=== PATIENT | female | born 1930 | race Caucasian/White ===

== ENCOUNTER 2017-05-22 14:03 | Inpatient (IN) | payer MEDICARE, BC ==
[~2017-05-22] VITALS: Ht 157.5 cm; Wt 53.6 kg
--- NOTE | ~2017-05-22 | HP ---
History And Physical [address] [place]. [address] NAME: GARRICK CHOI : 32 STATUS : ADM IN PAT#: [id number] AGE: 86 ADM/REG DATE : 05/22/17 MR#: [id number] REPORT SERV DATE: 05/22/17 DICTATED BY: ESAU MCNAMARA. DATE: 05/22/17 REPORT STATUS : Draft TRANSCRIBED BY: MODL DATE: 05/22/17 DATE OF ADMISSION: 05/22/2017 CHIEF COMPLAINT: Diarrhea. HISTORY OF PRESENT ILLNESS: This patient has two months of diarrhea and foul-smelling stools. She also has fecal incontinence. She has a previous history of constipation. 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 She has had some orthostatic dizziness. She denies any blood in her stool. PAST MEDICAL HISTORY: 1. COPD. 2. Alzheimer's. 3. Depression. 4. Dementia. 5. GERD. 6. Osteoporosis. 7. Also history of hepatitis B. 8. Hypertension. PAST SURGICAL HISTORY: 1. Appendectomy. 2. Lumpectomy. FAMILY HISTORY: Unknown. SOCIAL HISTORY: Occasional alcohol use. Former smoker. Lives at assisted living with her . MEDICATIONS: At home include: 1. Advair. 2. Alprazolam. 3. Celexa. 4. Cipro. 5. DuoNeb. 6. Pantoprazole. 7. Spiriva inhaler. PHYSICAL EXAMINATION: GENERAL: Sitting in a wheelchair. VITAL SIGNS: Blood pressure is 78/50, pulse 94, and 02 saturation 97%. NEUROLOGIC: Alert, somewhat confused. HEENT: Head normocephalic. Pupils are equal. Mucous membranes are not dry. NECK: Trachea midline. Thyroid not increased. No masses in the neck. CHEST: Some decreased breath sounds. CARDIAC: Normal. History And Physical [address] [place]. [address] NAME: GARRICK CHOI : 32 STATUS : ADM IN PAT#: [id number] AGE: 86 ADM/REG DATE : 05/22/17 MR#: [id number] REPORT SERV DATE: 05/22/17 DICTATED BY: ESAU MCNAMARA DATE: 05/22/17 REPORT STATUS : Draft TRANSCRIBED BY: MODL DATE: 05/22/17 ABDOMEN: Soft and nontender. EXTREMITIES: Has some degenerative joint problems. MENTAL STATUS: Conversant, somewhat confused at times. IMPRESSION: 1. Hypotension. Her usual blood pressure is 108/60. Could be having hypotension from volume loss due to diarrhea. 2. Diarrhea, unclear etiology. Rule out Clostridium difficile. Rule out collagenous colitis. 3. History of dementia. 4. Chronic obstructive pulmonary disease. PLAN: 1. We will admit for IV fluids. 2. Hospitalist consult. 3. Stool studies. 4. May need endoscopic evaluation if stabilized. MG/MODL Esau Mcnamara M.D. / [id number] CC: Napoleon Baeza M.D.
--- NOTE | ~2017-05-22 | CN ---
Consultation Report [address] [place]. [address] NAME: GARRICK CHOI : 32 STATUS : ADM IN PAT#: [id number] AGE: 86 ADM/REG DATE : 05/22/17 MR#: [id number] REPORT SERV DATE: 05/22/17 DICTATED BY: DARLYN GARCIA DATE: 05/22/17 REPORT STATUS : Draft TRANSCRIBED BY: MODL DATE: 05/22/17 CONSULTATION DATE OF CONSULTATION: CONSULTATION REASON: Medical management. HISTORY OF PRESENT ILLNESS: This is an 86-year-old female patient who presented to Dr. Mazariegos's office this morning with diarrhea for a month. The patient was admitted to hospital because of hypotension. At the office, was found to be 70/40. However now, her blood pressure is 135/77. The patient is recommended to get a direct admit because of hypotension and diarrhea. She said she had chronic constipation, but she does not recall any trigger, but she started having loose bowel movement here and there that she has no idea about the consistency, where it comes and in what kind of situation that triggered. Does not recall any infectious etiology either. Does not recall any antibiotic use. The patient recently moved to [facility] last Friday; however, this symptom started prior to that, weeks ago. There is not much medical history change. The patient has chronic oxygen at home. REVIEW OF SYSTEMS: No fever, no chills. No nausea or vomiting. No abdominal pain. Has a loose stool frequently. No travel history. PAST MEDICAL HISTORY: 1. Dementia. 2. COPD with chronic oxygen 3 L use. 3. GERD. 4. Anxiety and depression. 5. History of rectal prolapse. 6. Colon polyps. 7. Pelvic fracture. 8. History of pneumonia. 9. History of hepatitis B. 10.History of pica with foreign body on the last admission. 11.Hysterectomy and tonsillectomy. Consultation Report [address] [place]. [address] NAME: GARRICK CHOI : 32 STATUS : ADM IN PAT#: [id number] AGE: 86 ADM/REG DATE : 05/22/17 MR#: [id number] REPORT SERV DATE: 05/22/17 DICTATED BY: DARLYN GARCIA DATE: 05/22/17 REPORT STATUS : Draft TRANSCRIBED BY: MODL DATE: 05/22/17 PAST SURGICAL HISTORY: 1. Bilateral inguinal hernia repair. 2. Left arm surgery. 3. Ventral abdominal hernia repair. 4. Vein stripping. 5. Right foot surgery. 6. Breast biopsy. 7. Appendectomy. ALLERGIES: PENICILLIN. SOCIAL HISTORY: She quit smoking in 2004. She is , has two children. She does not drink alcohol. She lives at assisted living currently. FAMILY HISTORY: Noncontributory. MEDICATIONS: 1. Proventil as needed. 2. Xanax 0.25 mg twice a day. 3. Aspirin 81 mg once at nighttime. 4. Cinnamon once at night. 5. Celexa 20 mg once a day. 6. Colace 100 mg once a day. 7. Aricept 10 mg once a day. 8. Atrovent two sprays three times a day. 9. Combivent once at night. 10.Levothyroxine 100 mcg once a day. 11.Namenda 10 mg once a day. 12.Multivitamin once a day. 13.Protonix 40 mg once a day. 14.Spiriva once a day. 15.Allergy pill. 16.Melatonin. PHYSICAL EXAMINATION: VITAL SIGNS: Blood pressure is 135/77, pulse rate was 74, temperature was 98.4, saturation is 99% 3 L nasal cannula oxygen. GENERAL APPEARANCE: She is alert, awake, not in acute distress elderly woman. HEENT: Pupils are equal, round, and reactive to light. EOMI intact. NECK: There are no carotid bruits audible. No JVD. CHEST: Clear to auscultation bilaterally. CARDIOVASCULAR: I do not hear any murmur, rub. Has a regular rhythm and rate. ABDOMEN: Bowel sounds are present and soft. I do not see any tenderness or rebound tenderness. EXTREMITIES: There is no pitting edema. Consultation Report [address] [place] [address] NAME: GARRICK CHOI : 32 STATUS : ADM IN [facility]#: [id number] AGE: 86 ADM/REG DATE : 05/22/17 MR#: [id number] REPORT SERV DATE: 05/22/17 DICTATED BY: DARLYN GARCIA DATE: 05/22/17 REPORT STATUS : Draft TRANSCRIBED BY: MODL DATE: 05/22/17 LABORATORY DATA: Not available. ASSESSMENT AND PLAN: 1. Chronic obstructive pulmonary disease with chronic hypoxic respiratory failure, stable. 2. Hypertension. 3. Diarrhea with history of significant constipation. 4. Dementia. 5. Anxiety and depression. 6. We will resume the medication and follow the patient along with you. EKOmari/DONTA Darlyn Garcia M.D. / [id number] CC: Napoleon Baeza M.D.
--- NOTE | ~2017-05-22 | EGD ---
EGD REPORT [facility] [address] [address] NAME: ELMA CHOI : 32 STATUS : ADM IN PAT#: [id number] AGE: 86 ADM/REG DATE : 05/22/17 MR#: [id number] REPORT SERV DATE: 05/24/17 DICTATED BY: GAETANO MCNAMARA DATE: 05/24/17 REPORT STATUS : Draft TRANSCRIBED BY: [facility] DATE: 05/24/17 [facility] Patient Name: Elma Choi Date of : 1930 Attending MD: GAETANO MCNAMARA MD Procedure Date No Time: 05/24/2017 Procedure: Colonoscopy Indications: Chronic diarrhea Medicines: Propofol per Anesthesia Complications: No immediate complications. Procedure: Pre-Anesthesia Assessment: - ASA Grade Assessment: III - A patient with severe systemic disease. After I obtained informed consent, the scope was passed under direct vision. Throughout the procedure, the patient's blood pressure, pulse, and oxygen saturations were monitored continuously. The PCF [id number] was introduced through the anus and advanced to the cecum, identified by appendiceal orifice and ileocecal valve. After I obtained informed consent, the scope was passed under direct vision. Throughout the procedure, the patient's blood pressure, pulse, and oxygen saturations were monitored continuously. The colonoscopy was performed without difficulty. The patient tolerated the procedure well. The quality of the bowel preparation was adequate. Findings: Normal mucosa was found in the entire colon. Biopsies were taken with a cold forceps for histology. A flat polyp was found in the proximal ascending colon. The polyp was 10 mm in size. This was biopsied with a cold forceps for histology. The retroflexed view of the distal rectum and anal verge was normal and showed no anal or rectal abnormalities. Impression: - Normal mucosa in the entire examined colon. Biopsied. - One 10 mm polyp in the proximal ascending colon. Biopsied. Recommendation: - Return patient to hospital keys for ongoing care. Procedure Code(s): --- Professional --- 56388, Colonoscopy, flexible, proximal to splenic flexure; with biopsy, single or multiple EGD REPORT [facility] [address] [facility]. [address] NAME: ELMA CHOI : 32 STATUS : ADM IN [facility]#: [id number] AGE: 86 ADM/REG DATE : 05/22/17 MR#: [id number] REPORT SERV DATE: 05/24/17 DICTATED BY: GAETANO MCNAMARA. DATE: 05/24/17 REPORT STATUS : Draft TRANSCRIBED BY: [employer] DATE: 05/24/17 Diagnosis Code(s): --- Professional --- D12.2, Benign neoplasm of ascending colon K52.9, Noninfective gastroenteritis and colitis, unspecified CPT copyright 2013 [employer]. All rights reserved. The codes documented in this report are preliminary and upon cardiographer review may be revised to meet current compliance requirements. Gaetano Mcnamara MD GAETANO MCNAMARA MD 05/24/2017 10:19 AM This report has been signed electronically. Number of Addenda: 0 Note Initiated On: 05/24/2017 9:24 AM Scope Withdrawal Time 0 hours 0 minutes 0 seconds [address] [facility] [place] [address]
--- NOTE | ~2017-05-22 | DS ---
Discharge Summary [facility] [address] [facility] [place]. [address] NAME: GARRICK CHOI : 32 STATUS : ADM IN [facility]#: [id number] AGE: 86 ADM/REG DATE : 05/22/17 MR#: [id number] REPORT SERV DATE: 05/24/17 DICTATED BY: GAETANO MCNAMARA DATE: 05/24/17 REPORT STATUS : Draft TRANSCRIBED BY: MODL DATE: 05/24/17 ADMISSION DATE: 05/22/2017 DISCHARGE DATE: DISCHARGE DIAGNOSES: 1. Diarrhea, dehydration. 2. Hypotension, requiring admission. 3. Dementia. 4. Chronic obstructive pulmonary disease. 5. History of hepatitis B. CASE HISTORY: This patient has had two months of diarrhea. Also, foul-smelling flatus. She has had incontinence. Previously had had marked constipation. On admission in the office, her blood pressure 78/50, pulse was 94. On admission to the hospital, initial pressure was 120. On exam, she was alert and oriented. Warm and dry. Oxygen on her chest was clear bilaterally. Abdomen was soft, nontender. HOSPITAL COURSE AND ASSESSMENT: The patient was given IV fluids. As noted, her blood pressure was 120 on admission, although she was supine sitting like in the office. She was given IV fluids. She improved. She had no bowel movement in 24 hours. Colonoscopy was done which was basically normal. Biopsies were taken for microcolitis. PLAN: The patient will be followed up as an outpatient. Unclear the etiology of her diarrhea. We will await studies. /DONTA Gaetano Mcnamara M.D. / [id number] CC: Napoleon Baeza M.D.
[~2017-05-22 14:03] MED LIST: ADVAIR250 INH; ALBUTEROL5 INH; ALLEGRA180 PO; ARICEPT10 PO; ASAB PO; ATRONASAL6 NAS; BEN25 PO; BENTYL10 PO; CELEXA20 PO; CHONDROITIN PO; CINNAMONPO; COMBIVENT INH; COMBIVENT RESPIM4 GM INH; CYANOCOBALAMIN PO; DSS PO; FLEXERIL5 MG PO; FLORASTOR250 MG PO; GARLIC PO; GLUCOSAMINE1 TA2 PO; IMOD PO; LAM250 PO; LEVAQ750PM IV; LEVOTHYROXIN100 MCG PO; LOM PO; LORTAB10 PO; MAGNESIUM W/ ZINC PO; MAGOX4 PO; MELA3 PO; MUCINEX600 MG PO; MULTIVIT/MIN PO; OCUVITE PO; PHENERGAN (G25 MG/ML IM; PROTONIX PO; PROTONIX20 MG PO; PYRIDOXINE PO; SPIRIVA INH; STERAPRED DS10 MG; SYN1 PO; VITAMIN C100 MG PO; VITAMIN D1000 UNI1 PO; VITC500 PO; VITE PO; X25 PO; ZYRTEC ALLGY10 MG PO; [UNRECOGNIZED DRUG - OTHER] PO
[2017-05-22] MEDS ORDERED: X25 PO (15:41)
[2017-05-22] MEDS ORDERED: LEVOTHYROXIN100 MCG PO (15:42)
[2017-05-22] MEDS ORDERED: PROVHFA INH (15:42)
[2017-05-22] MEDS ORDERED: CELEXA20 PO (15:43)
[2017-05-22] MEDS ORDERED: PROTONIX PO (15:43)
[2017-05-22] MEDS ORDERED: ARICEPT10 PO (15:43)
[2017-05-22] MEDS ORDERED: NAMENDA10 MG PO (15:43)
[2017-05-22] MEDS ORDERED: DSS PO (15:43)
[2017-05-22] MEDS ORDERED: ATRONASAL6 NAS (15:43)
[2017-05-22] MEDS ORDERED: HALF81 PO (15:44)
[2017-05-22] MEDS ORDERED: SPIRIVA INH (15:44)
[2017-05-22] MEDS ORDERED: CINNAMONPO PO (15:44)
[2017-05-22] MEDS ORDERED: THERGRANM PO (15:44)
[2017-05-22] MEDS ORDERED: ALLERGY MED OTC PO (15:45)
[2017-05-22] MEDS ORDERED: COMBIVENT RESPIM4 GM INH (15:47)
[2017-05-22] MEDS ORDERED: ALTERIL SLEEP AID PO (15:47)
[2017-05-22 17:27] LABS: BASOPHILS 0.5 %; BASOPHILS ABSOLUTE 0.04 10/3/uL (0.0-0.16); EOSINOPHILS 1.6 %; EOSINOPHILS ABSOLUTE 0.12 10/3/uL (0.0-0.53); HEMATOCRIT 35.3 % (36.0-48.0); HEMOGLOBIN 11.8 g/dL (12.0-16.0); IMMATURE GRANULOCYTES 0.1 %; IMMATURE GRANULOCYTES ABSOLUTE 0.01 10/3/uL (0.0-0.11); LYMPHOCYTES 27.8 %; LYMPHOCYTES ABSOLUTE 2.07 10/3/uL (0.67-4.30); MANUAL DIFF NO %; MEAN CORPUS HGB CONC 33.4 g/dL (32.0-36.0); MEAN CORPUSCULAR HEMOGLOB 30.8 pg (26.0-34.0); MEAN CORPUSCULAR VOLUME 92.2 fL (80-100); MEAN PLATELET VOLUME 10.6 fL (9.2-13.0); MONOCYTES 9.5 %; MONOCYTES ABSOLUTE 0.71 10/3/uL (0.21-1.20); NEUTROPHILS 60.5 %; NEUTROPHILS ABSOLUTE 4.49 10/3/uL (2.02-8.40); PLATELET COUNT 318 10/3/uL (150-400); RBC DISTRIBUTION WIDTH 13.1 % (12.0-16.0); RED CELL COUNT 3.83 10/6/uL (4.0-5.6); WHITE BLOOD CELLS 7.4 10/3/uL (4.5-10.5)
[2017-05-22 17:33] LABS: PROTIME (NOT ORD) 13.1 SEC (12.0-14.5)
[2017-05-22 17:54] LABS: A/G RATIO 1.1 (0.7-1.9); ALBUMIN 3.9 G/DL (3.5-5.0); ALKALINE PHOSPHATASE 108 U/L (45-117); BUN (BLOOD UREA NITROGEN) 17 MG/DL (6-23); C-REACTIVE PROTEIN 9.8 MG/L (<8.0); CALCIUM, SERUM 9.5 MG/DL (8.5-10.4); CHLORIDE, SERUM 99 MMOL/L (96-112); CO2 (CARBON DIOXIDE) 26 MMOL/L (24-34); CREATININE 0.93 MG/DL (0.55-1.02); GFR AFRICAN AMERICAN 65 ML/MIN (>=60); GFR NON AFRICAN AMERICAN 56 ML/MIN (>=60); GLOBULIN 3.6 G/DL (2.5-4.1); GLUCOSE, SERUM 79 MG/DL (60-99); POTASSIUM, SERUM 3.9 MMOL/L (3.5-5.3); SGOT(AST) 28 U/L (5-40); SGPT(ALT) 25 U/L (5-65); SODIUM, SERUM 133 MMOL/L (135-148); TOTAL BILIRUBIN 0.4 MG/DL (0-1.2); TOTAL PROTEIN 7.5 G/DL (6.0-8.5)
[2017-05-23 03:53] LABS: ASCORBIC ACID (UR NOT ORDER) NEG (NEG); BILIRUBIN, URINE NEGATIVE (NEG); KETONE, URINE NEGATIVE (NEG); LEUKOCYTE ESTERASE(NOT OR SMALL (NEG); WBC (NOT ORDERED) (RFLEX) 11 (0-5)
[2017-05-24 06:00] LABS: BUN (BLOOD UREA NITROGEN) 16 MG/DL (6-23); CHLORIDE, SERUM 105 MMOL/L (96-112); CO2 (CARBON DIOXIDE) 29 MMOL/L (24-34); GFR AFRICAN AMERICAN 78 ML/MIN (>=60); GFR NON AFRICAN AMERICAN 67 ML/MIN (>=60); GLUCOSE, SERUM 84 MG/DL (60-99); POTASSIUM, SERUM 4.3 MMOL/L (3.5-5.3); SGOT(AST) 26 U/L (5-40); SGPT(ALT) 22 U/L (5-65); TOTAL PROTEIN 6.4 G/DL (6.0-8.5)
[2017-05-24 06:01] LABS: A/G RATIO 0.9 (0.7-1.9); ALKALINE PHOSPHATASE 93 U/L (45-117); CALCIUM, SERUM 8.5 MG/DL (8.5-10.4); GLOBULIN 3.4 G/DL (2.5-4.1); SODIUM, SERUM 140 MMOL/L (135-148); TOTAL BILIRUBIN 0.9 MG/DL (0-1.2)
== END 2017-05-24 14:35 | disposition home or self-care (01) | DRG 641 ==
LOC: ENRESERVDT → ENRESERV → ENRESERVTM → 2SO 15:08
PROVIDERS: Internal Medicine Gastroenterology
PROC: 0DBE8ZX Excision of Large Intestine, Via Natural or Artificial Opening Endoscopic, Diagnostic (ICD-10-PCS; principal; 2017-05-24 09:30)
DX: E86.0 Dehydration (principal); I95.9 Hypotension, unspecified; J96.11 Chronic respiratory failure with hypoxia; Z99.81 Dependence on supplemental oxygen; J44.9 Chronic obstructive pulmonary disease, unspecified; G30.9 Alzheimer's disease, unspecified; F02.80 Dementia in other diseases classified elsewhere, unspecified severity, without behavioral disturbance, psychotic disturbance, mood disturbance, and anxiety; I10 Essential (primary) hypertension; K21.9 Gastro-esophageal reflux disease without esophagitis; R19.7 Diarrhea, unspecified; F41.9 Anxiety disorder, unspecified; F32.9 Major depressive disorder, single episode, unspecified; D12.2 Benign neoplasm of ascending colon; M81.0 Age-related osteoporosis without current pathological fracture; Z98.890 Other specified postprocedural states; Z86.19 Personal history of other infectious and parasitic diseases; Z87.891 Personal history of nicotine dependence; Z86.010 Personal history of colon polyps; Z88.0 Allergy status to penicillin
CPT/HCPCS: 71010; 74000; 80053; 81001; 82272; 83735; 84999; 85025; 85610; 86140; 87045; 87046; 87046-59; 87086; 87328; 87329; 87493; 87493-59; 87899; 87899-59; 88305; 89055; 89125; 93005; 94640; A9270-GY